=== PATIENT | female | born 1960 | race Asian ===

== ENCOUNTER 2021-08-10 23:15 | Emergency (ER) | payer OTHER, BC ==
[~2021-08-10] VITALS: Ht 152.4 cm; Wt 54.4 kg
[~2021-08-10 23:15] MED LIST: BIOTIN1 MG PO; MULTI VITAMIN1 EACH PO
[2021-08-11] MEDS ORDERED: HYDROCODON-ACE1 EA10 PO (00:17)
== END 2021-08-11 00:44 | disposition home or self-care (01) ==
LOC: ED 23:15
DX: S92.344A Nondisplaced fracture of fourth metatarsal bone, right foot, initial encounter for closed fracture (principal); S42.021A Displaced fracture of shaft of right clavicle, initial encounter for closed fracture; W01.0XXA Fall on same level from slipping, tripping and stumbling without subsequent striking against object, initial encounter; Z79.899 Other long term (current) drug therapy
CPT/HCPCS: 71101; 73030; 73630; 99283-25

== ENCOUNTER 2022-07-27 22:13 | Emergency (ER) | payer OTHER, BC ==
[~2022-07-27] VITALS: Ht 152.4 cm; Wt 59.7 kg
[~2022-07-27 22:13] MED LIST changes: +HYDROCODON-ACE1 EA10 PO
== END 2022-07-27 23:03 | disposition home or self-care (01) ==
LOC: ED 22:13
DX: S63.601A Unspecified sprain of right thumb, initial encounter (principal); W19.XXXA Unspecified fall, initial encounter
CPT/HCPCS: 29125; 73130; 99283-25